=== PATIENT | female | born 1955 | race Caucasian/White ===

== ENCOUNTER → 2022-10-30 | Outpatient (CLI) | payer BC | END | disposition home or self-care (01) | LOC: LABWHC1 15:30 | PROVIDERS: ATTEND Internal Medicine Endocrinology, Diabetes & Metabolism | DX: E05.00 Thyrotoxicosis with diffuse goiter without thyrotoxic crisis or storm (principal) | CPT/HCPCS: 36415; 84439; 84443; 84480 ==

== ENCOUNTER 2023-06-12 12:32 | Day surgery (SDC) | payer MEDICARE ==
[2023-06-12] MEDS ORDERED: ALPRAZolam 0.25 MG TAB PO STA (13:22)
[2023-06-12 13:28] VITALS: RESP 16; TEMP 98.3
[2023-06-12 18:18] VITALS: BP 121/64; PULSE 77
--- NOTE | 2023-06-12 20:13 | US ---
EXAMINATION TYPE: US FNA thyroid first lesion DATE OF EXAM: 06/12/2023 2:32 PM REASON FOR EXAM: 67-year-old female E04.1 RADIOLOGIST: Dr. Torrey Avendaño PROCEDURE: The procedure, along with the risks and complications were discussed with the patient. Patient agreed to proceed with the procedure. A consent was signed and placed in patient's chart. Maximum sterile barrier technique was utilized. Timeout was performed by myself. The right side of th e neck was sterilely prepped and draped in the usual fashion. 5 mL of 1% Lidocaine were utilized to a nesthetize the superficial and deep soft tissues. The dominant 3.6 cm heterogeneous solid nodule is targeted for FNA. Following that, under ultrasound guidance, 5 passes were made into the nodule with 5 cc syringe sucti on and 25-gauge needles. After each pass, the sample was placed on a slide and then sent for patholog y. Upon conclusion, hemostasis was achieved, and patient was discharged home in satisfactory condition. IMPRESSION: Satisfactory ultrasound guided fine needle aspiration of the dominant 3.6 cm solid nodule in the righ t thyroid lobe. Pathology pending.
== END 2023-06-12 14:50 | disposition home or self-care (01) ==
LOC: RADPROMAIN 12:32
PROVIDERS: ATTEND Internal Medicine Endocrinology, Diabetes & Metabolism
DX: E04.1 Nontoxic single thyroid nodule (principal)
CPT/HCPCS: 10005; 88173; 88305

== ENCOUNTER 2024-10-11 08:34 | Day surgery (SDC) | payer MEDICARE ==
[2024-10-05 14:15] VITALS: BMI 27.4
[2024-10-11] MEDS ORDERED: fentaNYL (PF) 50 MCG/ML 2 ML AMP IVP PRN (08:48)
[2024-10-11] MEDS ORDERED: MIDAZOLAM 2 MG/2 ML VIAL IV PRN (08:48)
[2024-10-11] MEDS ORDERED: LIDOCAINE 1% (10MG/ML) FOR IV START INTRADERMA PRN (08:48)
[2024-10-11] MEDS: IV FLUID CONTINUATION 1,000 ML IV ONE ×2 (09:11→12:08)
[2024-10-11 09:26] LABS: Glucose,Whole Blood 112 mg/dL (70-110)
[2024-10-11] MEDS: LACTATED RINGERS 1,000 ML IV SCH (09:31)
[2024-10-11] MEDS: DEXAMETHASONE SOD PHOSPHATE 4 MG/ML 1 ML VIAL IV ONE (09:36)
[2024-10-11] MEDS: ONDANSETRON 4 MG/2 ML VIAL IVP ONE (09:36)
[2024-10-11] MEDS: ACETAMINOPHEN TAB 500 MG TAB PO PRN (09:37)
[2024-10-11 09:43] LABS: HCT 37.4 % (37.2-46.3); HGB 11.7 g/dL (12.0-15.0); MCH 26.6 pg (27.0-32.0); MCHC 31.3 g/dL (32.0-37.0); Mean Platelet Volume 9.7 fL (9.5-12.2); Platelet Count 217 10*3/uL (140-440); RDW 19.8 % (11.5-14.5); WBC 8.99 10*3/uL (4.50-10.00)
[2024-10-11] MEDS: HEPARIN SODIUM,PORCINE 5,000 UNIT/ML 1 ML VIAL SQ PRN (09:47)
[2024-10-11] MEDS: droPERidol 2.5 MG/ML VIAL IVP ONE (09:51)
[2024-10-11 10:08] LABS: African American GFR (CKD) 66 (>60 ml/min/1.73 sqM); Anion Gap 10 mmol/L; Blood Urea Nitrogen 22 mg/dL (7-17); Calcium 9.7 mg/dL (8.4-10.2); Carbon Dioxide 25 mmol/L (22-30); Chloride 106 mmol/L (98-107); Glucose 115 mg/dL (74-99); Non-African American GFR(CKD) 57 (>60 ml/min/1.73 sqM); Potassium 4.4 mmol/L (3.5-5.1); Sodium 141 mmol/L (137-145)
[2024-10-11] MEDS ORDERED: PROPOFOL 10 MG/ML 20 ML VIAL IV ONE (10:51)
[2024-10-11] MEDS ORDERED: NEOSTIGMINE 1 MG/ML 10 ML VIAL ONE (10:51)
[2024-10-11] MEDS ORDERED: ePHEDrine 50 MG/ML 1 ML VIAL ONE (10:51)
[2024-10-11] MEDS ORDERED: LIDOCAINE 1% INJ 10MG/ML (20 ML MDV) ONE (10:51)
[2024-10-11] MEDS ORDERED: GLYCOPYRROLATE 0.2 MG/ML 2 ML VIAL ONE (10:51)
[2024-10-11] MEDS ORDERED: MIDAZOLAM 2 MG/2 ML VIAL ONE (10:51)
[2024-10-11] MEDS ORDERED: ROCURONIUM 10 MG/ML (5 ML VIAL) IV ONE (10:51)
[2024-10-11] MEDS ORDERED: SUCCINYLCHOLINE CHLORIDE 200 MG/10 ML VIAL IV ONE (10:51)
[2024-10-11] MEDS ORDERED: fentaNYL (PF) 50 MCG/ML 2 ML AMP ONE (10:51)
[2024-10-11] MEDS ORDERED: SUGAMMADEX SODIUM 100 MG/ML SYR IV ONE (10:51)
[2024-10-11] MEDS: LIDOCAINE 1%-EPI 1:100,000 20 ML VIAL SQ ONE ×2 (10:56→11:23)
[2024-10-11] MEDS: ceFAZolin 2 GM in DEXTROSE 5% IN WATER 50 ML IVPB PRN (10:56)
--- NOTE | 2024-10-11 12:23 | P.OP ---
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 The patient received general anesthesia. And was placed in dorsal lithotomy position. The patient was prepped and draped in the usual sterile fashion. The skin incision sites were anesthetized with 1% local Xylocaine. The skin was incised in the left periumbilical area and then using a blade less 5 mm trocar under direct visualization panel cavity was entered. After adequate insufflation the laparoscope was then placed into the peritoneal cavity. Next a 5 mm trochars placed in the right epigastric position. Another 5 millimeter trocar the right lateral position. Another 5 millimeter trocar in the left lateral position a 5 mm trocar is placed in the left epigastric position. And then the initial 5 mm trocar was exchanged for a 10 mm trocar. The left lateral lobe liver was retracted. The hernia was seen. The crural defect was then dissected using the Harmonic scissors device. A 360 crural dissection was performed the esophagus stomach was reduced back into the peritoneal Cavity. The crural defect was then closed using 2-0 Ethibond suture. Next the fundus of the stomach was mobilized using the [place] scissors device. and then a 58- Monegasque bougie dilator was placed oropharynx passed into the esophagus and stomach the 180 degree fundal plication wrap was then performed by grasping the fundus posteriorly and bringing it around the esophagus and stomach fundoplication was then performed using 2-0 Ethibond suture. Care was taken t hat the fundal location rested over top of the intra-abdominal esophagus. There was no injury seen to the stomach or esophagus. The dilator was then withdrawn. The abdomen was irrigated there is no bleeding seen. The trochars were then withdrawn and then skin incision sites were closed using 3-0 Monocryl suture Steri-Strips are applied. Patient thought procedure well and sent to recovery room in stable condition.
[2024-10-11] MEDS ORDERED: HYDROmorphone 1 MG/ML 1 ML SYRINGE IVP PRN (12:30)
[2024-10-11] MEDS: HYDROmorphone 0.5 MG/0.5 ML SYRINGE IVP PRN (12:44)
[2024-10-11 12:53] LABS: Glucose,Whole Blood 181 mg/dL (70-110)
[2024-10-11] MEDS: ONDANSETRON 4 MG/2 ML VIAL IVP PRN (14:13)
[2024-10-11] MEDS: D5-0.45% NACL WITH KCL 20MEQ/L 1,000 ML IV SCH (14:43)
[2024-10-11] MEDS: ceFAZolin 2 GM in DEXTROSE 5% IN WATER 50 ML IVPB SCH (16:17)
[2024-10-11] MEDS: METOCLOPRAMIDE 5 MG/ML 2 ML VIAL IVP SCH (18:09)
[2024-10-11 19:52] VITALS: RESP 16
[2024-10-11] MEDS: ACETAMINOPHEN TAB 325 MG TAB PO PRN (22:39)
[2024-10-12 07:43] VITALS: BP 135/79; PULSE 82; TEMP 98.2
[2024-10-12] MEDS ORDERED: HYDROcodone/APAP 5-325MG 1 EACH TAB PO PRN (07:57)
[2024-10-12] MEDS: PANTOPRAZOLE 40 MG TABLET PO SCH (08:06)
[2024-10-12] MEDS: ENOXAPARIN 40 MG/0.4 ML SYRINGE SQ SCH (08:06)
[2024-10-12] MEDS: carvediloL 6.25 MG TAB PO SCH (08:06)
--- NOTE | 2024-10-12 10:53 | P.DS ---
Providers Expected date of discharge: 10/12/24 Attending physician: Jose A Saleh Consults: 10/11/24 12:30 Consult Physician Routine Consulting Provider: Bernard Jolley Consult Reason/Comments: med manage Do you want consulting provider notified?: Yes Primary care physician: Marty Garsia [facility] Course: Discharge diagnosis 1. Large paraesophageal hiatal hernia with intrathoracic stomach Hospital course This is a 68-year-old female with a large paraesophageal hiatal hernia with intrathoracic stomach. She is status post laparoscopic Niesen fundoplication. Patient is tolerating diet. She has been up and ambulating. Pain is controlled. She is afebrile. She is having flatus. She is stable for discharge. Please refer to chart for any further details. Physician Mysql Database Administrator note has been reviewed by physician. Signing provider agrees with the documented findings, assessment, and plan of care. Patient Condition at Discharge: Stable Plan - Discharge Summary Discharge Rx Participant: No New Discharge Prescriptions: New Acetaminophen Tab [Tylenol] 1,000 mg PO Q6HR PRN #30 tablet PRN Reason: Pain Continue methIMAzole 10 mg PO DAILY carvediloL [Coreg] 6.25 mg PO BID Spironolactone 25 mg PO DAILY Pantoprazole [Protonix] 40 mg PO BID Discharge Medication List Spironolactone 25 mg PO DAILY 05/19/23 [History] carvediloL [Coreg] 6.25 mg PO BID 05/19/23 [History] methIMAzole 10 mg PO DAILY 05/19/23 [History] Pantoprazole [Protonix] 40 mg PO BID 10/05/24 [History] Acetaminophen Tab [Tylenol] 1,000 mg PO Q6HR PRN #30 tablet 10/12/24 [Rx] Follow up Appointment(s)/Referral(s): Jose A Saleh MD [STAFF PHYSICIAN] - 10/21/24 1:40 pm Activity/Diet/Wound Care/Special Instructions: No lifting over 10 pounds Shower daily. No soaking or tub baths for 2 weeks Very light activity until you are reevaluated at your follow up appointment with your surgeon No straws or carbonated beverages Stay on a full liquid diet for the next 2 weeks Discharge Disposition: HOME SELF-CARE
--- NOTE | 2024-10-12 15:39 | P.CONS ---
History of Present Illness - Reason for Consult Consult date: 10/12/24 Medical management - Chief Complaint status post Paul fundoplication - History of Present Illness Patient is a 68-year-old female with a past medical history of diabetes type 2 diet-controlled, GERD, hypertension, hyperthyroidism. Patient was found to have large paraesophageal hiatal hernia with intrathoracic stomach. She was admitted to hospital for elective Paul fundoplication. Patient is status post laparoscopic Paul fundoplication. Laboratory data showed WBC 8.9 hemoglobin 11.7 and platelets 217 sodium 141 potassium 4.4 chloride 106 bicarbonate 25 BUN 2020 creatinine 1.01 and blood sugar 112 Patient currently denies any complaints of nausea or vomiting. Tolerating oral diet. No chest pain or shortness of breath. Postoperatively blood pressure was 156/89 and pulse 71 respiration 18 and pulse ox 96% on 2 L via nasal cannula. Review of Systems Constitutional: Patient denies any fever or chills . No generalized weakness or weight loss. Abdomen: Patient denied nausea vomiting and diarrhea and abdominal pain. Cardiovascular: Patient denies any chest pain or short of breath no palpitations. Respiratory: patient denied any cough or sputum production. No shortness of breath Neurologic: Patient denied any numbness or tingling. no headache. Musculoskeletal: Patient denies any complaints of joint swelling or deformity. Skin: Negative Psychiatric: Negative Endocrine: No heat or cold intolerance. No recent weight gain. Genitourinary: No dysuria or hematuria. 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 TYPE II DIET CONTROL History of Any Multi-Drug Resistant Organisms: None Reported Past Surgical History: No Surgical Hx Reported Additional Past Surgical History / Comment(s): COLONOSCOPY/EGD Past Anesthesia/Blood Transfusion Reactions: No Reported Reaction Smoking Status: Never smoker - Past Family History Mother Family Medical History: No Reported History Medications and Allergies Home Medications Medication Instructions Recorded Confirmed Type Spironolactone 25 mg PO DAILY 05/19/23 10/11/24 History carvediloL [Coreg] 6.25 mg PO BID 05/19/23 10/11/24 History methIMAzole 10 mg PO DAILY 05/19/23 10/11/24 History Pantoprazole [Protonix] 40 mg PO BID 10/05/24 10/11/24 History Acetaminophen Tab [Tylenol] 1,000 mg PO Q6HR PRN #30 tablet 10/12/24 Rx Allergies Allergy/AdvReac Type Severity Reaction Status Date / Time No Known Allergies Allergy Verified 10/11/24 09:11 Physical Exam Vitals: Vital Signs Temp Pulse Pulse Pulse Resp BP BP 10/12/24 07:12 98.2 F 82 16 135/79 10/12/24 01:07 98.3 F 87 16 148/79 10/11/24 19:07 97.4 F L 76 16 124/79 10/11/24 15:43 71 156/89 10/11/24 15:13 67 153/88 10/11/24 14:43 55 L 147/82 10/11/24 14:28 57 L 155/87 10/11/24 14:13 56 L 148/81 10/11/24 13:58 64 154/80 10/11/24 13:48 97.6 F 55 L 18 157/79 10/11/24 13:15 55 L 18 135/62 10/11/24 13:07 54 L 18 139/55 10/11/24 12:52 60 16 137/60 10/11/24 12:37 68 18 140/73 10/11/24 12:22 96.5 F L 79 16 131/60 Pulse Ox 10/12/24 07:12 93 L 10/12/24 01:07 96 10/11/24 19:07 98 10/11/24 15:43 95 10/11/24 15:13 95 10/11/24 14:43 96 10/11/24 14:28 95 10/11/24 14:13 94 L 10/11/24 13:58 92 L 10/11/24 13:48 93 L 10/11/24 13:15 92 L 10/11/24 13:07 91 L 10/11/24 12:52 95 10/11/24 12:37 98 10/11/24 12:22 96 Intake and Output 10/11/24 10/12/24 10/12/24 22:59 06:59 14:59 Intake Total 350 Output Total 400 Balance -50 Intake: Oral 350 Output: Urine 400 Other: Voiding Method Toilet Toilet # Voids 1 1 PHYSICAL EXAMINATION: Patient is lying in the bed comfortably, no acute distress, awake alert and oriented.. HEENT: Normocephalic. Neck is supple. Pupils reactive. Nostrils clear. Oral cavity is moist. Neck reveals no JVD, carotid bruits, or thyromegaly. CHEST EXAMINATION: Trachea is central. Symmetrical expansion. Lung ann clear to auscultation and percussion. CARDIAC: Normal S1, S2 with no gallops. No murmurs ABDOMEN: Soft. Bowel sounds normal. No organomegaly. No abdominal bruits. Extremities: reveal no edema. No clubbing or cyanosis Neurologically awake, alert, oriented x3 with well-coordinated movements. No focal deficits noted Skin: No rash or skin lesions. Psychiatric: Coperative. Nonsuicidal Musculoskeletal: No joint swelling or deformity. Normal range of motion. Results CBC & Chem 7: 10/11/24 09:25 10/11/24 09:25 Labs: Abnormal Lab Results - Last 24 Hours (Table) 10/11/24 Range/Units 12:52 POC Glucose (mg/dL) 181 H (70-110) mg/dL Assessment and Plan Assessment: Status post laparoscopic Paul fundoplication for large paraesophageal hernia with intrathoracic stomach. Postoperative day 1 Diabetes type 2 diet controlled GERD Hypertension Hyperthyroidism DVT prophylaxis early ambulation Plan: Patient will be continued on pain regimen, symptomatic management for nausea and vomiting. Encourage incentive spirometry. Patient was started back on home medications. Patient did improve symptomatically she was also given a dose of dexamethasone. She is being discharged home today. Recommended to follow-up with primary care physician next 3 days and general surgery as an outpatient.
== END 2024-10-12 11:34 | disposition home or self-care (01) ==
LOC: OR 08:34 → 5NMEDONC 12:27 → OR 10-12 11:34
PROVIDERS: ATTEND Surgery
DX: K44.9 Diaphragmatic hernia without obstruction or gangrene (principal); K21.01 Gastro-esophageal reflux disease with esophagitis, with bleeding; E11.9 Type 2 diabetes mellitus without complications; E05.90 Thyrotoxicosis, unspecified without thyrotoxic crisis or storm; I10 Essential (primary) hypertension; Z79.899 Other long term (current) drug therapy
CPT/HCPCS: 80048; 85027; 43280; J1644; J1100; J2765 ×2; J0690 ×2; J2405; J1650; J1171; J1790